=== PATIENT | male | born 1955 | race Caucasian/White ===

== ENCOUNTER → 2021-02-12 | Day surgery (SDC) | payer MEDICARE, OTHER ==
[~2021-02-12] VITALS: Ht 165.1 cm; Wt 72.6 kg
[~2021-02-12] MED LIST: ATORVASTATIN CA40 MG PO; GABAPENTIN400 MG PO; LEVOTHYROXINE75 MC1 PO; LOSARTAN POTASS25 MG PO; MECLIZINE HCL25 MG PO; NORCO 5-325 TA1 EACH PO; NORCO 5/3251 EACH PO; ONDANSETRON ODT8 MG PO; OZEMPIC1 MG/0.75 SC; SYNJARDY XR 121 EACH PO; VICODIN 10/3251 EACH PO; VITAMIN D350 MCG PO
== END | disposition home or self-care (01) ==
LOC: FAS 07:08
DX: I87.2 Venous insufficiency (chronic) (peripheral) (principal); K86.9 Disease of pancreas, unspecified; E11.9 Type 2 diabetes mellitus without complications; M54.9 Dorsalgia, unspecified; G89.29 Other chronic pain; E03.9 Hypothyroidism, unspecified; Z79.82 Long term (current) use of aspirin; Z79.899 Other long term (current) drug therapy; Z88.1 Allergy status to other antibiotic agents
CPT/HCPCS: 71045; 76000; 77001; C1788; J0690; J1644; J2250; J2704; J7120

== ENCOUNTER 2021-09-13 16:32 | Emergency (ER) | payer MEDICARE, OTHER ==
[2021-09-13 17:37] LABS: BASOPHIL 0.2 % (0-2); EOSINOPHIL 2.2 % (0-7); HCT 31.9 % (42.0-52.0); HGB 9.7 g/dl (13.2-18.0); LYMPHOCYTE 6.7 % (15-48); MCH 31.4 pg (25.0-31.0); MCHC 30.4 g/dL (32.0-36.0); MCV 103.2 fL (78.0-100.0); MONOCYTE 3.9 % (0-12); MPV 10.4 fL (6.0-9.5); NEUTROPHIL 86.5 % (41-80); NRBC 0; PLT 169 K/uL (150-400); RBC 3.09 M/uL (4.70-6.00); RDW 16.7 % (11.5-14.0); WBC 14.8 K/uL (4.0-10.5)
[2021-09-13 17:54] LABS: INR 1.26 (0.9-1.2); PROTHROMBIN TIME 15.1 SECONDS (11.8-13.4); PTT 37.6 SECONDS (24.4-34.7)
[2021-09-13 18:02] LABS: LACTIC ACID 1.2 mmol/L (0.4-1.9)
[2021-09-13 18:06] LABS: ALBUMIN 2.1 g/dL (3.4-5.0); BILIRUBIN - TOTAL 0.5 mg/dL (0.2-1.0); BUN/CREAT RATIO (CALC) 67.3 RATIO; CREATININE 0.49 mg/dL (0.67-1.17); GLOBULIN (CALCULATION) 3.8 g/dL; POTASSIUM 3.9 mmol/L (3.5-5.1); TOTAL PROTEIN 5.9 g/dL (6.4-8.2)
== END 2021-09-13 22:30 | disposition other institution (70) ==
LOC: FER 16:32
PROVIDERS: Emergency Medicine
DX: J96.01 Acute respiratory failure with hypoxia (principal); I11.0 Hypertensive heart disease with heart failure; I50.9 Heart failure, unspecified; E11.9 Type 2 diabetes mellitus without complications; Z88.0 Allergy status to penicillin; Z88.1 Allergy status to other antibiotic agents
CPT/HCPCS: 36415; 36600; 71045; 71250; 71275; 80053; 82803; 83605; 83880; 84145; 84484; 85025; 85610; 85730; 87040; 93005; J1170; J1650; J1940; U0002